=== PATIENT | female | born 1965 | race Caucasian/White ===

== ENCOUNTER 2016-10-08 14:14 | Emergency (ER) | payer SELFPAY ==
[2016-10-08 15:08] VITALS: BP 123/67
--- NOTE | 2016-10-08 15:25 | UC ---
Throat Pain/Nasal Saman HPI - HPI Summary HPI Summary: c/o sudden onset sore throat, body aches, generalized malaise X 1 day. - History of Current Complaint Chief Complaint: UCGeneralIllness Stated Complaint: SORE THROAT Time Seen by Provider: 10/08/16 15:10 Hx Obtained From: Patient Hx Last Menstrual Period: n/a ?: No Onset/Duration: Sudden Onset, Lasting Days - 1 day Severity: Moderate Associated Signs & Symptoms: Positive: Dysphagia - Allergies/Home Medications Allergies/Adverse Reactions: Allergies Allergy/AdvReac Type Severity Reaction Status Date / Time Ibuprofen Allergy Severe AIRWAY Verified 10/08/16 15:08 SWELLING Latex Allergy Severe Difficulty Verified 10/08/16 15:08 Breathing Levofloxacin [From Levaquin] Allergy Severe Leg Cramps Verified 10/08/16 15:08 Penicillins Allergy Intermediate Rash Verified 10/08/16 15:08 Aspirin Allergy Unknown Verified 10/08/16 15:08 Reaction Details PMH/Surg Hx/FS Hx/Imm Hx Previously Healthy: Yes - Surgical History Surgical History: Yes Surgery Procedure, Year, and Place: L WRIST SX. HYSTERECTOMY. ABD SX TO REMOVE MASSES (16 SX). KNEE SURGERY. T&A - Family History Known Family History: Positive: Other - COPD - Social History Lives: With Family Alcohol Use: None Substance Use Type: None Smoking Status (MU): Never Smoked Tobacco Review of Systems Constitutional: Fatigue Skin: Negative Eyes: Negative ENT: Sore Throat Respiratory: Negative Cardiovascular: Negative Gastrointestinal: Negative Genitourinary: Negative Motor: Negative Neurovascular: Negative Musculoskeletal: Negative Neurological: Negative Psychological: Negative All Other Systems Reviewed And Are Negative: Yes Physical Exam Triage Information Reviewed: Yes Appearance: Ill-Appearing Vital Signs: Initial Vital Signs Temp 97.7 F 10/08/16 14:59 Pulse 69 10/08/16 14:59 Resp 20 10/08/16 14:59 BP 123/67 10/08/16 14:59 Pulse Ox 98 10/08/16 14:59 Vital Signs Reviewed: Yes ENT Exam: Other ENT: Positive: Pharyngeal erythema Neck exam: Normal Respiratory Exam: Normal Cardiovascular Exam: Normal Musculoskeletal Exam: Normal Neurological Exam: Normal Psychological Exam: Normal Skin Exam: Normal Throat Pain/Nasal Course/Dx - Differential Dx/Diagnosis Differential Diagnosis/HQI/PQRI: Pharyngitis Provider Diagnoses: pharyngitis Discharge - Discharge Plan Condition: Stable Disposition: HOME Prescriptions: Azithromycin [Azithromycin 500 MG TAB] 500 mg PO DAILY #5 tab Patient Education Materials: Pharyngitis (ED) Referrals: Sai King MD [Primary Care Provider] - If Needed
== END 2016-10-08 16:02 | disposition home or self-care (01) ==
LOC: UCCORT 14:14
DX: J02.9 Acute pharyngitis, unspecified (principal)
CPT/HCPCS: 87651; 99212; G0463

== ENCOUNTER 2017-01-11 10:18 | Emergency (ER) | payer BC ==
--- NOTE | 2017-01-11 11:07 | UC ---
Throat Pain/Nasal Saman HPI - HPI Summary HPI Summary: 51 YEAR OLD FEMALE PRESENTS WITH COMPLAINS OF SORE THROAT , NASAL CONGESTION , AND HEADACHE. - History of Current Complaint Stated Complaint: SORE THROAT Time Seen by Provider: 01/11/17 11:07 Hx Obtained From: Patient Hx Last Menstrual Period: n/a Onset/Duration: Sudden Onset Severity: Moderate Pain Scale Used: 0-10 Numeric - 2 Cough: Nonproductive - Allergies/Home Medications Allergies/Adverse Reactions: Allergies Allergy/AdvReac Type Severity Reaction Status Date / Time Ibuprofen Allergy Severe AIRWAY Verified 01/11/17 11:10 SWELLING Latex Allergy Severe Difficulty Verified 01/11/17 11:10 Breathing Levofloxacin [From Levaquin] Allergy Severe Leg Cramps Verified 01/11/17 11:10 Penicillins Allergy Intermediate Rash Verified 01/11/17 11:10 Aspirin Allergy Unknown Verified 01/11/17 11:10 Reaction Details Home Medications: Home Medications Phendimetrazine Tartrate 210 mg PO BID 01/11/17 [History Confirmed 01/11/17] PMH/Surg Hx/FS Hx/Imm Hx Previously Healthy: Yes - Surgical History Surgical History: Yes Surgery Procedure, Year, and Place: L WRIST SX. HYSTERECTOMY. ABD SX TO REMOVE MASSES (16 SX). KNEE SURGERY. T&A - Family History Known Family History: Positive: Other - COPD - Social History Alcohol Use: None Substance Use Type: None Smoking Status (MU): Never Smoked Tobacco Review of Systems Constitutional: Negative Skin: Negative Eyes: Negative ENT: Sore Throat, Nasal Discharge, Sinus Congestion, Sinus Pain/Tenderness Respiratory: Negative Cardiovascular: Negative Gastrointestinal: Negative Genitourinary: Negative Motor: Negative Neurovascular: Negative Musculoskeletal: Negative Neurological: Negative Psychological: Negative All Other Systems Reviewed And Are Negative: Yes Physical Exam Triage Information Reviewed: Yes Eye Exam: Normal ENT: Positive: Pharyngeal erythema, Nasal congestion Dental Exam: Normal Neck exam: Normal Neck: Positive: 1 Respiratory Exam: Normal Cardiovascular Exam: Normal Abdominal Exam: Normal Musculoskeletal Exam: Normal Neurological Exam: Normal Psychological Exam: Normal Skin Exam: Normal Throat Pain/Nasal Course/Dx - Differential Dx/Diagnosis Provider Diagnoses: SORE THROAT. NASAL CONGESTION. HEADACHE Discharge - Discharge Plan Condition: Stable Disposition: HOME Prescriptions: Azithromyxin ADÁN (NF) [Z-Adán (Zithromax) 250 mg tabs #6] 2 tab PO .TODAY, THEN 1 DAILY #6 tab LoraTADine TAB(NF) [Claritin 10 MG TAB(NF)] 10 mg PO DAILY #30 tab Magic M W2 Harpreet/Maal/Nyst/Lido* 5 ml SWISH SPIT QID PRN #120 ml PRN Reason: Sore Throat Patient Education Materials: Sinusitis (ED) Forms: *Work Release Referrals: Sai King MD [Primary Care Provider] -
[2017-01-11 11:11] VITALS: BP 108/62
== END 2017-01-11 11:38 | disposition home or self-care (01) ==
LOC: UCCORT 10:18
DX: J02.9 Acute pharyngitis, unspecified (principal); R09.81 Nasal congestion; R51 Headache
CPT/HCPCS: 87651; 99212; G0463

== ENCOUNTER 2017-06-12 20:47 | Emergency (ER) | payer BC ==
[2017-06-12 21:12] VITALS: BP 132/65
--- NOTE | 2017-06-12 21:25 | UC ---
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 Pt has history of left wrist injury and surgery. - History Of Current Complaint Chief Complaint: UCUpperExtremity Stated Complaint: ARM WRIST THUMB INJURY AND PAIN Time Seen by Provider: 06/12/17 21:09 Hx Obtained From: Patient Hx Last Menstrual Period: n/a ?: No Onset/Duration: Sudden Onset, Lasting Hours, Still Present Severity Initially: Mild Severity Currently: Moderate Pain Intensity: 8 Character Of Pain: Dull, Aching Aggravating Factor(s): Movement, Lifting Alleviating Factor(s): Rest Associated Signs And Symptoms: Positive: Swelling Related History: Dominant Hand Right - Risk Factors Compartment Syndrome Risk Factors: Pain - Allergies/Home Medications Allergies/Adverse Reactions: Allergies Allergy/AdvReac Type Severity Reaction Status Date / Time ibuprofen Allergy Severe anaphylaxis Verified 06/12/17 21:15 latex Allergy Severe Difficulty Verified 06/12/17 21:15 Breathing Penicillins Allergy Intermediate Rash Verified 06/12/17 21:15 aspirin Allergy Unknown unknown Verified 06/12/17 21:15 reaction levofloxacin [From Levaquin] AdvReac Intermediate Leg Cramps Verified 06/12/17 21:15 Home Medications: Home Medications Phendimetrazine Tartrate 35 mg PO TID 06/12/17 [History Confirmed 06/12/17] PMH/Surg Hx/FS Hx/Imm Hx Previously Healthy: Yes - Surgical History Surgical History: Yes Surgery Procedure, Year, and Place: L WRIST SX. HYSTERECTOMY. ABD SX TO REMOVE MASSES (16 SX). KNEE SURGERY. T&A - Family History Known Family History: Positive: Other - COPD - Social History Occupation: Employed Full-time Lives: With Family Alcohol Use: None Substance Use Type: None Smoking Status (MU): Never Smoked Tobacco Have You Smoked in the Last Year: No - Immunization History Most Recent Influenza Vaccination: 01/2017 Review of Systems Constitutional: Negative Skin: Negative Eyes: Negative ENT: Negative Respiratory: Negative Cardiovascular: Negative Gastrointestinal: Negative Genitourinary: Negative Motor: Decreased ROM - left wrist Neurovascular: Negative Musculoskeletal: Arthralgia - left wrist, Myalgia Neurological: Negative Psychological: Negative Is Patient Immunocompromised?: No All Other Systems Reviewed And Are Negative: Yes Physical Exam Triage Information Reviewed: Yes Appearance: Well-Appearing Vital Signs: Initial Vital Signs Temp 96.7 F 06/12/17 21:08 Pulse 85 06/12/17 21:08 Resp 17 06/12/17 21:08 BP 132/65 06/12/17 21:08 Pulse Ox 99 06/12/17 21:08 Vital Signs Reviewed: Yes Eye Exam: Normal ENT Exam: Normal Dental Exam: Normal Neck exam: Normal Respiratory: Positive: Normal breath sounds Musculoskeletal Exam: Other Musculoskeletal: Positive: ROM Limited @ - left wrist Neurological Exam: Normal Psychological Exam: Normal Skin Exam: Normal - multiple surgical scars, left wrist and forearm Diagnostics - Radiology No standard instances Radiology Interpretation Completed By: Radiologist - 3 views of the wrist demonstrates no fracture. Fusion of the left wrist noted. IMPRESSION: NO FRACTURE OF THE WRIST IS NOTED. Postoperative changes with fusion left wrist. Hand/Wrist Course/Dx - Differential Dx/Diagnosis Differential Diagnosis/HQI/PQRI: Contusion Provider Diagnoses: left wrist contusion Discharge - Discharge Plan Condition: Stable Disposition: HOME Patient Education Materials: Wrist Sprain (ED) Referrals: Sai King MD [Primary Care Provider] - Additional Instructions: Please follow up with your orthopedic provider as needed. If unable to get a timely appointment please return to clinic.
--- NOTE | 2017-06-12 21:39 | RAD ---
Indication: Left wrist injury 3 views of the wrist demonstrates no fracture. Fusion of the left wrist noted. IMPRESSION: NO FRACTURE OF THE WRIST IS NOTED. Postoperative changes with fusion left wrist.
== END 2017-06-12 21:48 | disposition home or self-care (01) ==
LOC: UCCORT 20:47
DX: S60.212A Contusion of left wrist, initial encounter (principal); X50.0XXA Overexertion from strenuous movement or load, initial encounter; Y93.89 Activity, other specified; Y92.9 Unspecified place or not applicable; Z88.0 Allergy status to penicillin; Z88.8 Allergy status to other drugs, medicaments and biological substances; Z88.1 Allergy status to other antibiotic agents; Z91.040 Latex allergy status
CPT/HCPCS: 99212; G0463

== ENCOUNTER 2018-03-21 10:14 | Emergency (ER) | payer BC ==
[2018-03-21 10:42] VITALS: BP 119/61
--- NOTE | 2018-03-21 10:57 | UC ---
UC General HPI - HPI Summary HPI Summary: PAIN L JAW X 2 WEEKS. HURTS TO CHEW AND OPEN MOUTH. WAS STRUCK IN L SIDE OF JAW WHILE AT WORK A SHORT TIME AGO BUT NEVER SOUGHT TX AND IT DID GET BETTER UNTIL NOW. NO RECURRENT INJURY. NO DENTAL PAIN OR SWELLING. NO TOOTH IN AREA AND HAS AN UPPER PLATE THAT IS FINE. - History of Current Complaint Chief Complaint: UCGeneralIllness Stated Complaint: LEFT JAW PAIN Time Seen by Provider: 03/21/18 10:44 Hx Obtained From: Patient Hx Last Menstrual Period: n/a Onset/Duration: Gradual Onset Timing: Constant Pain Intensity: 6 Aggravating: OPENING MOUTH AND CHEWING Associated Signs & Symptoms: Negative: Edema, Fever, Headache - Allergy/Home Medications Allergies/Adverse Reactions: Allergies Allergy/AdvReac Type Severity Reaction Status Date / Time ibuprofen Allergy Severe anaphylaxis Verified 06/12/17 21:15 latex Allergy Severe Difficulty Verified 06/12/17 21:15 Breathing Penicillins Allergy Intermediate Rash Verified 06/12/17 21:15 aspirin Allergy Unknown unknown Verified 06/12/17 21:15 reaction levofloxacin [From Levaquin] AdvReac Intermediate Leg Cramps Verified 06/12/17 21:15 PMH/Surg Hx/FS Hx/Imm Hx Previously Healthy: Yes - Surgical History Surgical History: Yes Surgery Procedure, Year, and Place: L WRIST SX. HYSTERECTOMY. ABD SX TO REMOVE MASSES (16 SX). KNEE SURGERY. T&A - Family History Known Family History: Positive: Other - COPD - Social History Occupation: Employed Full-time Alcohol Use: None Substance Use Type: None Smoking Status (MU): Never Smoked Tobacco Have You Smoked in the Last Year: No - Immunization History Most Recent Influenza Vaccination: 01/2017 Review of Systems All Other Systems Reviewed And Are Negative: Yes Constitutional: Positive: Negative Skin: Positive: Negative Eyes: Positive: Negative ENT: Positive: Negative Respiratory: Positive: Negative Cardiovascular: Positive: Negative Gastrointestinal: Positive: Negative Genitourinary: Positive: Negative Motor: Positive: Negative Neurovascular: Positive: Negative Musculoskeletal: Positive: Negative Neurological: Positive: Negative Psychological: Positive: Negative Physical Exam Triage Information Reviewed: Yes Appearance: Well-Appearing Vital Signs: Initial Vital Signs Temp 97.4 F 03/21/18 10:38 Pulse 74 03/21/18 10:38 Resp 20 03/21/18 10:38 BP 119/61 03/21/18 10:38 Pulse Ox 100 03/21/18 10:38 Vital Signs Reviewed: Yes Eyes: Positive: Conjunctiva Clear ENT: Positive: Pharynx normal, TMs normal. Negative: Nasal congestion, Nasal drainage Dental: Positive: Other: - tENDER OVER l tmj AND IT POPS WITH ROM. Negative: Percussion Tenderness @, Abscess @ Neck: Positive: Supple, Nontender, No Lymphadenopathy Respiratory: Positive: Lungs clear, Normal breath sounds Cardiovascular: Positive: RRR, No Murmur Abdomen Description: Positive: Nontender, No Organomegaly, Soft Bowel Sounds: Positive: Present Musculoskeletal: Positive: ROM Intact Neurological: Positive: Alert Psychological: Positive: Age Appropriate Behavior Skin Exam: Normal Skin: Negative: Rashes Course/Dx - Course Course Of Treatment: NO CONCERN FOR INFECTION/ABSCESS - Diagnoses Provider Diagnosis: TMJ (temporomandibular joint syndrome) Discharge - Sign-Out/Discharge Documenting (check all that apply): Patient Departure All imaging exams completed and their final reports reviewed: No Studies - Discharge Plan Condition: Stable Disposition: HOME Prescriptions: Cyclobenzaprine TAB* [Flexeril 10 MG TAB*] 10 mg PO TID PRN #10 tab PRN Reason: Spasms - Muscle predniSONE TAB* [Deltasone 20 MG TAB*] 40 mg PO DAILY 5 Days #10 tab Patient Education Materials: Temporomandibular Disorder (ED) Forms: *Work Release Referrals: Sai King MD [Primary Care Provider] - Additional Instructions: FOLLOW UP WITH YOUR DENTIST SOON POSSIBLE. PT REFERRAL GIVEN - Billing Disposition and Condition Condition: STABLE Disposition: Home
== END 2018-03-21 11:20 | disposition home or self-care (01) ==
LOC: UCCORT 10:14
DX: M26.602 Left temporomandibular joint disorder, unspecified (principal); Z88.0 Allergy status to penicillin; Z88.6 Allergy status to analgesic agent; Z88.1 Allergy status to other antibiotic agents
CPT/HCPCS: 99212; G0463

== ENCOUNTER 2018-04-19 21:14 | Emergency (ER) | payer BC | END 2018-04-19 21:40 | disposition left against medical advice (07) | LOC: UCCORT 21:14 | DX: J02.9 Acute pharyngitis, unspecified (principal); H93.90 Unspecified disorder of ear, unspecified ear; R09.81 Nasal congestion; Z53.21 Procedure and treatment not carried out due to patient leaving prior to being seen by health care provider ==

== ENCOUNTER 2018-07-06 20:59 | Emergency (ER) | payer BC ==
[2018-07-06 21:14] VITALS: BP 121/72
[2018-07-06] MEDS ORDERED: predniSONE TAB* 20 MG PO ONE (21:28)
[2018-07-06] MEDS ORDERED: Azithromycin TAB* 250 MG PO ONE (21:28)
--- NOTE | 2018-07-06 21:28 | UC ---
Respiratory Complaint HPI - HPI Summary HPI Summary: SEVERAL DAYS OF PRODUCTIVE COUGH, CONGESTION AND FATIGUE. THIS MORNING LOST HER VOICE. NO FEVER, NAUSEA/VOMITING/DIARRHEA. ALSO COMPLAINS OF SOME LEFT EAR PAIN. NO HEARING LOSS OR DRAINAGE FROM THE EAR. MILD SCRATCHY THROAT. POSITIVE SICK EXPOSURES. - History of Current Complaint Chief Complaint: UCRespiratory Stated Complaint: SORE THROAT, AND SINUS CONGESTION Time Seen by Provider: 07/06/18 21:06 Hx Obtained From: Patient Hx Last Menstrual Period: total hysterectomy age 27 Onset/Duration: Gradual Onset, Lasting Days, Still Present Timing: Constant Severity Initially: Moderate Severity Currently: Moderate Pain Intensity: 6 Pain Scale Used: 0-10 Numeric Character: Cough: Productive Aggravating Factors: Nothing Alleviating Factors: Nothing Associated Signs And Symptoms: Positive: Chills, URI, Nasal Congestion. Negative: Dyspnea, Fever, Wheezing - Allergies/Home Medications Allergies/Adverse Reactions: Allergies Allergy/AdvReac Type Severity Reaction Status Date / Time ibuprofen Allergy Severe anaphylaxis Verified 07/06/18 21:14 latex Allergy Severe Difficulty Verified 07/06/18 21:14 Breathing Penicillins Allergy Intermediate Rash Verified 07/06/18 21:14 aspirin Allergy Unknown unknown Verified 07/06/18 21:14 reaction levofloxacin [From Levaquin] AdvReac Intermediate Leg Cramps Verified 07/06/18 21:14 Home Medications: Home Medications Phetaminotrin 1 tab PO TID 07/06/18 [History Confirmed 07/06/18] PMH/Surg Hx/FS Hx/Imm Hx Respiratory History: Asthma Other GI/ History: BARRETTS - Surgical History Surgical History: Yes Surgery Procedure, Year, and Place: L WRIST SX. HYSTERECTOMY total. ABD SX TO REMOVE MASSES (16 SX). KNEE SURGERY. T&A - Family History Known Family History: Positive: Other - COPD - Social History Alcohol Use: None Substance Use Type: None Smoking Status (MU): Never Smoked Tobacco Have You Smoked in the Last Year: No - Immunization History Most Recent Influenza Vaccination: 01/2017 Review of Systems All Other Systems Reviewed And Are Negative: Yes Constitutional: Positive: Chills, Fatigue ENT: Positive: Sore Throat, Ear Ache, Nasal Discharge Respiratory: Positive: Cough Cardiovascular: Positive: Negative Gastrointestinal: Positive: Negative Physical Exam Triage Information Reviewed: Yes Appearance: No Pain Distress, Well-Nourished, Ill-Appearing - APPEARS FATIGUED Vital Signs: Initial Vital Signs Temp 98.7 F 07/06/18 21:06 Pulse 76 07/06/18 21:06 Resp 16 07/06/18 21:06 BP 121/72 07/06/18 21:06 Pulse Ox 100 07/06/18 21:06 Vital Signs Reviewed: Yes Eyes: Positive: Conjunctiva Clear ENT: Positive: Hearing grossly normal, Pharynx normal, Other - RIGHT TM NORMAL. LEFT TM DULL, ERYTHEMATOUS. LEFT EAC EDEMATOUS. MILD PAIN WITH TRACTION ON LEFT PINNA AND PRESSURE ON LEFT TRAGUS. Neck: Positive: Supple, Nontender, No Lymphadenopathy Respiratory Exam: Normal Cardiovascular Exam: Normal Abdomen Description: Positive: Soft Musculoskeletal: Positive: No Edema Neurological: Positive: Alert Psychological: Positive: Age Appropriate Behavior Skin: Negative: Rashes Respiratory Course/Dx - Differential Dx/Diagnosis Provider Diagnosis: Acute URI, Laryngitis, Left otitis media, Left otitis externa Discharge - Sign-Out/Discharge Documenting (check all that apply): Patient Departure All imaging exams completed and their final reports reviewed: No Studies - Discharge Plan Condition: Stable Disposition: HOME Prescriptions: Albuterol HFA INHALER* [Ventolin HFA Inhaler*] 2 puff INH Q4H PRN #1 mdi PRN Reason: Shortness Of Breath Azithromycin 500 mg PO DAILY #4 tab Ofloxacin 0.3% (Ear Drop)* [Floxin 0.3% OTIC.CARLOS ENRQIUE*] 10 drop LEFT EAR DAILY #1 btl predniSONE TAB* [Deltasone TAB*] 50 mg PO DAILY #4 tab Patient Education Materials: Otitis Externa (ED), Laryngitis (ED), Ear Infection (ED), Upper Respiratory Infection (ED) Forms: *Work Release Referrals: Sai King MD [Primary Care Provider] - If Needed Additional Instructions: YOU HAVE A MILD LEFT MIDDLE EAR INFECTION AND EXTERNAL EAR INFECTION ON EXAM TODAY. WILL GIVE ANTIBIOTIC EAR DROPS AND ORAL AZITHROMYCIN TO COVER WHICH SHOULD ALSO COVER ANY RESPIRATORY COMPONENT TO YOUR CONDITION. ALBUTEROL AND PREDNISONE NEEDED FOR AIRWAY INFLAMMATION. YOUR RESPIRATORY SYMPTOMS MAY BE VIRALLY MEDIATED BUT GIVEN YOUR CONSTELLATION OF SYMPTOMS WE WILL COVER YOU WITH ANTIBIOTICS. TAKE IT FOR THE FULL COURSE. REST, HYDRATE, OTC MEDS NEEDED. SEEK FOLLOW-UP WITH YOUR PCP IF YOU ARE NOT IMPROVING OVER THE NEXT 1-2 WEEKS. - Billing Disposition and Condition Condition: STABLE Disposition: Home
== END 2018-07-06 21:52 | disposition home or self-care (01) ==
LOC: UCEAST 20:59
DX: J06.9 Acute upper respiratory infection, unspecified (principal); H66.92 Otitis media, unspecified, left ear; H60.92 Unspecified otitis externa, left ear; J04.0 Acute laryngitis; Z88.3 Allergy status to other anti-infective agents; J45.909 Unspecified asthma, uncomplicated; K22.70 Barrett's esophagus without dysplasia; Z88.6 Allergy status to analgesic agent; Z88.0 Allergy status to penicillin; Z91.040 Latex allergy status
CPT/HCPCS: 99212; A9270-GY; G0463; J7512

== ENCOUNTER 2018-09-14 18:34 | Emergency (ER) | payer BC ==
[2018-09-14 19:20] VITALS: BP 97/58
[2018-09-14] MEDS ORDERED: Amoxicillin/Clavulanate TAB* 875 MG PO ONE (19:37)
--- NOTE | 2018-09-14 19:38 | UC ---
Throat Pain/Nasal Saman HPI - HPI Summary HPI Summary: 53-year-old woman comes in with a chief complaint of sore throats feeling ill and fatigue for the last 2 days. She's taken some Tylenol which did help with symptoms. Hurts more when she swallows. No shortness of breath no chest congestion. - History of Current Complaint Chief Complaint: UCRespiratory Stated Complaint: SORE THROAT Time Seen by Provider: 09/14/18 19:22 Hx Last Menstrual Period: total hysterectomy age 27 Pain Intensity: 6 - Allergies/Home Medications Allergies/Adverse Reactions: Allergies Allergy/AdvReac Type Severity Reaction Status Date / Time ibuprofen Allergy Severe anaphylaxis Verified 09/14/18 19:14 latex Allergy Severe Difficulty Verified 09/14/18 19:14 Breathing Penicillins Allergy Intermediate Rash Verified 09/14/18 19:14 aspirin Allergy Unknown unknown Verified 09/14/18 19:14 reaction levofloxacin [From Levaquin] AdvReac Intermediate Leg Cramps Verified 09/14/18 19:14 Home Medications: Home Medications Phendimetrazine Tartrate 2 tab TID 09/14/18 [History Confirmed 09/14/18] Topiramate [Topamax] 50 mg PO BID 09/14/18 [History Confirmed 09/14/18] PMH/Surg Hx/FS Hx/Imm Hx Previously Healthy: Yes - Surgical History Surgical History: Yes Surgery Procedure, Year, and Place: L WRIST SX. HYSTERECTOMY total. ABD SX TO REMOVE MASSES (16 SX). KNEE SURGERY. T&A - Family History Known Family History: Positive: Other - COPD - Social History Alcohol Use: None Substance Use Type: None Smoking Status (MU): Never Smoked Tobacco Have You Smoked in the Last Year: No - Immunization History Most Recent Influenza Vaccination: 01/2017 Review of Systems All Other Systems Reviewed And Are Negative: Yes Constitutional: Positive: Fatigue Skin: Positive: Negative Eyes: Positive: Negative ENT: Positive: Sore Throat Respiratory: Positive: Negative Cardiovascular: Positive: Negative Gastrointestinal: Positive: Negative Motor: Positive: Negative Neurovascular: Positive: Negative Musculoskeletal: Positive: Negative Neurological: Positive: Negative Psychological: Positive: Negative Is Patient Immunocompromised?: No Physical Exam Triage Information Reviewed: Yes Appearance: Well-Appearing, No Pain Distress, Well-Nourished Vital Signs: Initial Vital Signs Temp 98 F 06/09/19 19:16 Pulse 73 09/14/18 19:16 Resp 16 09/14/18 19:16 BP 97/58 09/14/18 19:16 Pulse Ox 99 09/14/18 19:16 Vital Signs Reviewed: Yes Eye Exam: Normal Eyes: Positive: Conjunctiva Clear ENT: Positive: Pharyngeal erythema, TMs normal Neck: Positive: Supple Respiratory: Positive: Lungs clear, Normal breath sounds, No respiratory distress Cardiovascular: Positive: RRR Musculoskeletal Exam: Normal Musculoskeletal: Positive: Strength Intact, ROM Intact Neurological Exam: Normal Neurological: Positive: Alert, Muscle Tone Normal Psychological Exam: Normal Psychological: Positive: Age Appropriate Behavior Skin Exam: Normal Throat Pain/Nasal Course/Dx - Course Course Of Treatment: DISCUSSED VIRAL VERSES BACTERIAL INFECTION AND THE ROLE OF ANTIBIOTICS. THE PATIENT PREFERS TO BE ON ANTIBIOTICS AT THIS TIME. - Differential Dx/Diagnosis Provider Diagnosis: Pharyngitis Discharge - Sign-Out/Discharge Documenting (check all that apply): Patient Departure All imaging exams completed and their final reports reviewed: No Studies - Discharge Plan Condition: Stable Disposition: HOME Prescriptions: Amoxicillin/Clavulanate TAB* [Augmentin TAB 875*] 875 mg PO BID #19 tab Patient Education Materials: Pharyngitis (ED) Forms: *Work Release Referrals: Sai King MD [Primary Care Provider] - Additional Instructions: FOLLOW UP WITH YOUR DOCTOR IF NOT COMPLETELY IMPROVED. GET RECHECKED SOONER IF YOUR CONDITION WORSENS OR ANY QUESTIONS OR CONCERNS. - Billing Disposition and Condition Condition: STABLE Disposition: Home
== END 2018-09-14 19:42 | disposition home or self-care (01) ==
LOC: UCCORT 18:34
DX: J02.9 Acute pharyngitis, unspecified (principal); R53.83 Other fatigue; Z90.710 Acquired absence of both cervix and uterus; Z88.0 Allergy status to penicillin; Z88.8 Allergy status to other drugs, medicaments and biological substances; Z88.1 Allergy status to other antibiotic agents; Z91.040 Latex allergy status
CPT/HCPCS: 99212; A9270-GY; G0463

== ENCOUNTER 2018-12-26 09:17 | Emergency (ER) | payer BC, OTHER ==
[2018-12-26 10:32] VITALS: BP 146/85
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
[2018-12-26] MEDS ORDERED: Acetaminophen TAB* 325 MG PO ONE (10:49)
== END 2018-12-26 11:22 | disposition home or self-care (01) ==
LOC: UCCORT 09:17
DX: S50.12XA Contusion of left forearm, initial encounter (principal); W50.0XXA Accidental hit or strike by another person, initial encounter; Y93.F9 Activity, other caregiving; Y92.10 Unspecified residential institution as the place of occurrence of the external cause; Y99.0 Civilian activity done for income or pay; I10 Essential (primary) hypertension; Z88.0 Allergy status to penicillin; Z88.6 Allergy status to analgesic agent; Z88.1 Allergy status to other antibiotic agents; Z91.040 Latex allergy status
CPT/HCPCS: 99213; A9270-GY; G0463

== ENCOUNTER 2019-04-27 15:13 | Emergency (ER) | payer BC, OTHER ==
--- OUTSIDE RECORDS SUMMARY | 2019-04-27 15:51 | XMS REPORT | Continuity of Care Document ---
:1965 External Reference #:[id number] Author Name Manju Castillo, [facility] Address [address] [place] [address] Care Team Providers Name Role Phone Sai King MD - Family Medicine Care Team Information Home Maker [phone] Sai King MD - Family Medicine Care Team Information Home Maker [phone] Problems Description No Information Available Social History Type Date Description Comments Sex Unknown Tobacco Use Start: Unknown Never Smoked Cigarettes ETOH Use Denies alcohol use Recreational Drug Use Denies Drug Use Allergies, Adverse Reactions, Alerts Active Allergies Reaction Severity Comments Date Penicillin rash 11/20/2011 Cephalosporins skin rash 11/20/2011 Aspirin 11/20/2011 Levaquin muscle cramps 11/20/2011 Reglan unknown 11/20/2011 Zofran unknown 11/20/2011 Latex throat swelling 11/20/2011 Doxycycline 06/27/2017 Shellfish-Derived Products 06/27/2017 Ibuprofen Anaphylaxis Severe 06/27/2017 Medications Active Medications SIG Qnty Indications Ordering Provider Date Pantoprazole Sodium Take One Tablet By Unknown 40mg Mouth Twice A Day Tablets DR Before Meals Tylenol Extra Strength 2 tabs by mouth Unknown every 4 hours as 500mg Tablets needed Ventolin HFA take 2 puffs every Unknown 108(90Base) 6 hours as needed mcg/Act Aerosol for shortness of breath. Immunizations Description No Information Available Vital Signs Date Vital Result Comment 02/25/2019 10:01am BP Systolic 131 mmHg BP Diastolic 80 mmHg Body Temperature 96.7 F Heart Rate 83 /min Height 66 inches 5'6" [place] body weight in kilograms 59 kg O2 % BldC Oximetry 98 % 01/28/2019 9:38am BP Systolic 141 mmHg BP Diastolic 82 mmHg Body Temperature 97.2 F Heart Rate 81 /min Height 66 inches 5'6" Weight 259.00 lb BMI (Body Mass Index) 41.8 kg/m2 BSA (Body Surface Area) 2.23 m2 [place] body weight in kilograms 59 kg O2 % BldC Oximetry 96 % Results Description No Information Available Procedures Date Code Description Status 05/08/2007 93713705 Colonoscopy Completed Medical Devices Description No Information Available Encounters Type Date Location Provider Dx Diagnosis Office Visit 03/02/2019 Orthopaedic Office Manju Castillo M76.62 Achilles 8:00a S., [facility] tendinitis, left leg M25.572 Pain in left ankle and joints of left foot Office Visit 02/25/2019 9:30a Orthopaedic Jazlyn Castillo.62 [facility] Office Manju S., tendinitis, left RPAC leg M25.572 Pain in left ankle and joints of left foot Office Visit 01/28/2019 9:15a Orthopaedic Jazlyn Castillo.62 [facility] Office Manju S., tendinitis, left RPAC leg M25.572 Pain in left ankle and joints of left foot Office Visit 01/16/2019 9:00a Orthopaedic Office Manju Castillo M25.572 Pain in left S., [facility] ankle and joints of left foot M76.62 Achilles tendinitis, left leg Assessments Date Code Description Provider 03/02/2019 M76.62 Achilles tendinitis, left leg Castillo, Manju S., [facility] 03/02/2019 M25.572 Pain in left ankle and joints of left Castillo, Manju S. , [facility] foot 02/25/2019 M76.62 Achilles tendinitis, left leg Castillo, Manju S., [facility] 02/25/2019 M25.572 Pain in left ankle and joints of left Castillo, Manju S. , [facility] foot 01/28/2019 M76.62 Achilles tendinitis, left leg Castillo, Manju S., [facility] 01/28/2019 M25.572 Pain in left ankle and joints of left Castillo, Manju S. , [facility] foot 01/16/2019 M25.572 Pain in left ankle and joints of left Castillo, Manju S. , [facility] foot 01/16/2019 M76.62 Achilles tendinitis, left leg Manju Castillo, [facility] Plan of Treatment No Information Available Functional Status Description No Information Available Mental Status Description No Information Available Referrals Description No Information Available
--- OUTSIDE RECORDS SUMMARY | 2019-04-27 15:51 | XMS REPORT | Continuity of Care Document ---
:1965 External Reference #:[id number] Author Name Manju Castillo, [facility] Address [address] [place] [address] Care Team Providers Name Role Phone Sai King MD - Family Medicine Care Team Information Typewriter Aligner [phone] Sai King MD - Family Medicine Care Team Information Typewriter Aligner Problems Description No Information Available Social History [...] Rate 83 /min Height 66 inches 5'6" [place] body weight in kilograms 59 kg O2 % BldC Oximetry 98 % 01/28/2019 9:38am BP Systolic 141 mmHg BP Diastolic 82 mmHg Body Temperature 97.2 F Heart Rate 81 /min Height 66 inches 5'6" Weight 259.00 lb BMI (Body Mass Index) 41.8 kg/m2 BSA (Body Surface Area) 2.23 m2 [place] body weight in kilograms 59 kg O2 % BldC Oximetry 96 % Results Description No Information Available Procedures Date Code Description Status 05/08/2007 00880479 Colonoscopy Completed Medical Devices Description No Information Available Encounters Type Date Location Provider Dx Diagnosis Office Visit 02/25/2019 Orthopaedic Office Manju Castillo M76.62 Achilles 9:30a S., [facility] tendinitis, left leg M25.572 Pain in left ankle and joints of left foot Office Visit 01/28/2019 9:15a Orthopaedic Anna M76.62 [facility] Office Manju SFran, tendinitis, left [facility]AC leg M25.572 Pain in left ankle and joints of left foot Office Visit 01/16/2019 9:00a Orthopaedic Office Manju Castillo M25.572 Pain in left S., [facility] ankle and joints of left foot M76.62 Achilles tendinitis, left leg Assessments Date Code Description Provider 02/25/2019 M76.62 Achilles tendinitis, left leg Manju Castillo [facility] 02/25/2019 M25.572 Pain in left ankle and joints of left Manju Castillo. , [facility] foot 01/28/2019 M76.62 Achilles tendinitis, left leg Manju Castillo [facility] 01/28/2019 M25.572 Pain in left ankle and joints of left Manju Castillo. , [facility] foot 01/16/2019 M25.572 Pain in left ankle and joints of left Manju Castillo S. , [facility] foot 01/16/2019 M76.62 Achilles tendinitis, left leg Manju Castillo [facility] Plan of Treatment Future Appointment(s):03/25/2019 10:00 am - Manju Castillo [facility] at [facility]/25/2019 - Manju Castillo RPACM76.62 Achilles tendinitis, left legNew Therapy:Physical GmaaketH29.572 Pain in left ankle and joints of left footNew Therapy:Physical Therapy Functional Status Description No Information Available Mental Status Description No Information Available Referrals Description No Information Available
--- OUTSIDE RECORDS SUMMARY | 2019-04-27 15:51 | XMS REPORT | Continuity of Care Document ---
:1965 External Reference #:[id number] Author Name Manju Castillo, [facility] Address [address] [place] [address] Care Team Providers Name Role Phone Sai King MD - Family Medicine Care Team Information Narcotics Investigator [phone] Sai King MD - Family Medicine Care Team Information Narcotics Investigator Problems Description No Information Available Social History [...] Available Vital Signs Date Vital Result Comment 03/25/2019 10:18am BP Systolic Sitting Right Arm 119 mmHg BP Diastolic Sitting Right Arm 71 mmHg Respiratory Rate 20 /min Height 66 inches 5'6" [place] body weight in kilograms 59 kg 02/25/2019 10:01am BP Systolic 131 mmHg BP Diastolic 80 mmHg Body Temperature 96.7 F Heart Rate 83 /min Height 66 inches 5'6" [place] body weight in kilograms 59 kg O2 % dC Oximetry 98 % Results Description No Information Available Procedures Date Code Description Status 05/08/2007 [id number] Colonoscopy Completed Medical Devices Description No Information Available Encounters Type Date Location Provider Dx Diagnosis Office Visit 03/25/2019 Orthopaedic Office Manju Castillo M76.62 Achilles 10:00a S., [facility] tendinitis, left leg M25.572 Pain in left ankle and joints of left foot Office Visit 03/02/2019 8:00a Orthopaedic Yolanda Castillo76.62 [facility] Manju S., tendinitis, left RPAC leg M25.572 Pain in left ankle and joints of left foot Office Visit 02/25/2019 9:30a Yolanda Turner76.62 [facility] Manju S., tendinitis, left RPAC leg M25.572 Pain in left ankle and joints of left foot Office Visit 01/28/2019 9:15a Orthopaedic Yolanda Castillo76.62 [facility] Office Manju S., tendinitis, left RPAC leg M25.572 Pain in left ankle and joints of left foot Office Visit 01/16/2019 9:00a Orthopaedic Office Manju Castillo M25.572 Pain in left S., [facility] ankle and joints of left foot M76.62 Achilles tendinitis, left leg Assessments Date Code Description Provider 03/25/2019 M76.62 Achilles tendinitis, left leg [facility]ju S., [facility] 03/25/2019 M25.572 Pain in left ankle and joints of left Acstillo, Manju S. , [facility] foot 03/02/2019 M76.62 Achilles tendinitis, left leg Castillo, Manju S., [facility] 03/02/2019 M25.572 Pain in left ankle and joints of left Castillo, Manju S. , [facility] foot 02/25/2019 M76.62 Achilles tendinitis, left leg Castillo, Manju S., [facility] 02/25/2019 M25.572 Pain in left ankle and joints of left Castillo, Manju S. , [facility] foot 01/28/2019 M76.62 Achilles tendinitis, left leg Castillo, Manju S., [facility] 01/28/2019 M25.572 Pain in left ankle and joints of left Manju Castillo , [facility] foot 01/16/2019 M25.572 Pain in left ankle and joints of left Manju Castillo , [facility] foot 01/16/2019 M76.62 Achilles tendinitis, left leg Manju Castillo, [facility] Plan of Treatment 03/25/2019 - [facility] Castillo, [facility] tendinitis, left legNew Xrays:MRI, Low Extremity, No Joint, W/O Contrast, Ordered: 03/25/19M25.572 Pain in left ankle and joints of left footNew Xrays:MRI, Low Extremity, No Joint, W/ O Contrast, Ordered: 03/25/19 Functional Status Description No Information Available Mental Status Description No Information Available Referrals Description No Information Available
[2019-04-27 16:22] VITALS: BP 113/47
--- NOTE | 2019-04-27 16:25 | UC ---
UC General HPI - HPI Summary HPI Summary: 53-year-old male presenting with complaint of headache and cough 2 days. Cough nonproductive. Patient also notes mild diarrhea for 2-3 days. Notes nasal congestion. Denies sore throat. Denies shortness of breath and wheezing. Patient states she is an asthmatic and has not needed her inhaler. Denies nausea and vomiting. Denies abdominal pain. Patient states concern for influenza, as coworkers have been diagnosed. Patient also states that her granddaughters were recently diagnosed with viral illness. Notes chills. Denies any known fevers. Notes normal appetite and fluid intake. Has taken Tylenol for symptom relief. - History of Current Complaint Stated Complaint: COUGH, HEADACHE Hx Obtained From: Patient Hx Last Menstrual Period: total hysterectomy age 27 Pain Intensity: 4 - Allergy/Home Medications Allergies/Adverse Reactions: Allergies Allergy/AdvReac Type Severity Reaction Status Date / Time ibuprofen Allergy Severe anaphylaxis Verified 04/27/19 16:22 latex Allergy Severe Difficulty Verified 04/27/19 16:22 Breathing Penicillins Allergy Intermediate Rash Verified 04/27/19 16:22 aspirin Allergy Unknown unknown Verified 04/27/19 16:22 reaction levofloxacin [From Levaquin] AdvReac Intermediate Leg Cramps Verified 04/27/19 16:22 PMH/Surg Hx/FS Hx/Imm Hx Respiratory History: Asthma GI/ History: Gastroesophageal Reflux - Surgical History Surgical History: Yes Surgery Procedure, Year, and Place: L WRIST SX. HYSTERECTOMY total. ABD SX TO REMOVE MASSES (16 SX). KNEE SURGERY. T&A - Family History Known Family History: Positive: Other - COPD, Non-Contributory - Social History Alcohol Use: None Substance Use Type: None Smoking Status (MU): Never Smoked Tobacco Have You Smoked in the Last Year: No - Immunization History Most Recent Influenza Vaccination: 01/2017 Review of Systems All Other Systems Reviewed And Are Negative: Yes Constitutional: Positive: Chills ENT: Positive: Sinus Congestion Respiratory: Positive: Cough - nonproductive. Negative: Shortness Of Breath Cardiovascular: Positive: Negative Gastrointestinal: Positive: Diarrhea - "mild diarrhea" x2 days. Negative: Abdominal Pain, Vomiting, Nausea Genitourinary: Positive: Negative Musculoskeletal: Positive: Myalgia Neurological: Positive: Headache Physical Exam Triage Information Reviewed: Yes Appearance: Well-Appearing, No Pain Distress, Well-Nourished Vital Signs: Initial Vital Signs Temp 98.0 F 04/27/19 16:19 Pulse 72 04/27/19 16:19 Resp 18 04/27/19 16:19 BP 113/47 04/27/19 16:19 Pulse Ox 100 04/27/19 16:19 Lab Results 04/27/19 Range/Units 16:38 Influenza A (Rapid) Negative (Negative) Influenza B (Rapid) Negative (Negative) Vital Signs Reviewed: Yes Eyes: Positive: Conjunctiva Clear ENT: Positive: Hearing grossly normal, Pharynx normal, TMs normal, Uvula midline. Negative: Nasal congestion, Tonsillar swelling, Tonsillar exudate Neck exam: Normal Neck: Positive: Supple, Nontender, No Lymphadenopathy Respiratory Exam: Normal Respiratory: Positive: Lungs clear, Normal breath sounds, No respiratory distress, No accessory muscle use. Negative: Crackles, Rhonchi, Stridor, Wheezing Cardiovascular Exam: Normal Cardiovascular: Positive: RRR, No Murmur Abdominal Exam: Normal Abdomen Description: Positive: Nontender, Soft Neurological: Positive: Alert Psychological: Positive: Age Appropriate Behavior Skin Exam: Normal - no erythema or ecchymosis Course/Dx - Course Course Of Treatment: Negative rapid flu. Discussed viral illness with patient and instructed to continue symptomatic treatment. Instructed to follow up with PCP if symptoms worsen or persist. Patient voiced understanding and agree with treatment plan. - Diagnoses Provider Diagnosis: Acute bronchitis, Acute diarrhea Discharge ED - Sign-Out/Discharge Documenting (check all that apply): Patient Departure All imaging exams completed and their final reports reviewed: No Studies - Discharge Plan Condition: Stable Disposition: HOME Patient Education Materials: Acute Bronchitis (ED), Acute Diarrhea (ED), Viral Syndrome (ED) Forms: *Work Release Referrals: Sai King MD [Primary Care Provider] - If Needed Additional Instructions: Your rapid flu test was negative today. You may take over the counter cough and cold medications for your cold symptoms. You may use nasal saline spray as directed for symptomatic relief. You may continue with tylenol as directed. Get plenty of rest and fluids. Eat a bland diet, such as bread, bananas, and rice while symptoms are present. Follow up with your primary care doctor if your symptoms worsen or do not resolve within 7 days. - Billing Disposition and Condition Condition: STABLE Disposition: Home
[2019-04-27 16:50] LABS: Influenza A Molecular NEGATIVE (Negative); Influenza B Molecular NEGATIVE (Negative)
== END 2019-04-27 17:02 | disposition home or self-care (01) ==
LOC: UCCORT 15:13
DX: R19.7 Diarrhea, unspecified (principal); J20.9 Acute bronchitis, unspecified; J45.909 Unspecified asthma, uncomplicated; Z88.8 Allergy status to other drugs, medicaments and biological substances; Z88.0 Allergy status to penicillin; Z88.6 Allergy status to analgesic agent; Z88.1 Allergy status to other antibiotic agents; Z91.040 Latex allergy status
CPT/HCPCS: 99211; G0463